=== PATIENT | female | born 1955 | race Caucasian/White ===

== ENCOUNTER 2025-01-20 12:55 | Outpatient (CLI) | payer MEDICARE, BC ==
--- NOTE | 2025-01-20 15:14 | RADIOLOGY REPORT ---
CLINICAL INFORMATION: Preoperative planning. Primary osteoarthritis of the right shoulder. Biomet protocol. TECHNIQUE: Axial CT images of the right shoulder were obtained without IV contrast for Biomet protocol. Coronal and sagittal reformatted images were obtained, reviewed, and stored. All CT scans at this medical facility are performed using dose modulation techniques as appropriate to a performed exam i ncluding the following: Automated exposure control was utilized; adjustment of the MA and/or KV according to patient size; and use of iterative reconstruction technique. CTDIvol = 18.46 mGy DLP = 434.37 mGy-cm COMPARISON: None FINDINGS: There is prominent beam hardening artifact, limiting evaluation. No acute fracture. Moderate arthritic changes are seen at the glenohumeral joint with joint space narrowing and subchondral sclerosis. [id number]-lr-[id number] arthritic changes at the acromioclavicular joint. No significant glenoid retroversion or anteversion demonstrated. There is mild superior subluxation of the humeral head relative to the articular surface of the glenoid. There is fluid in the subacromial / subdeltoid bursa. No significant fatty atrophy visualized in the musculature of the right shoulder. Visualized portions of the right lung demonstrate areas of dependent atelectasis, otherwise clear. IMPRESSION: Arthritic changes in the glenohumeral joint and acromioclavicular joint as detailed above.
== END 2025-01-20 23:59 | disposition home or self-care (01) ==
LOC: RAD 12:55
PROVIDERS: ATTEND Physician Assistant
DX: Z01.818 Encounter for other preprocedural examination (principal); M19.011 Primary osteoarthritis, right shoulder; S43.011A Anterior subluxation of right humerus, initial encounter; X58.XXXA Exposure to other specified factors, initial encounter; Y93.89 Activity, other specified; Y92.89 Other specified places as the place of occurrence of the external cause; Y99.8 Other external cause status
CPT/HCPCS: 73200; J7120